=== PATIENT | male | born 1990 | race African-American/Black ===

== ENCOUNTER 2017-05-29 17:36 | Emergency (ER) | payer MEDICAID ==
[~2017-05-29] VITALS: Ht 182.9 cm; Wt 127.0 kg
[2017-05-29 17:39] VITALS: BP 127/83
== END 2017-05-29 19:46 | disposition left against medical advice (07) ==
LOC: ER 18:24
DX: Z53.21 Procedure and treatment not carried out due to patient leaving prior to being seen by health care provider (principal)